=== PATIENT | male | born 1995 | race African-American/Black ===

== ENCOUNTER 2016-11-27 13:09 | Emergency (ER) | payer SELFPAY ==
[2016-11-27 13:40] LABS: INFLUENZA A NEG (NEG); INFLUENZA B POS (NEG)
== END 2016-11-27 13:56 | disposition home or self-care (01) ==
LOC: CED 13:09
PROVIDERS: Physician Assistant Medical
DX: J10.1 Influenza due to other identified influenza virus with other respiratory manifestations (principal)
CPT/HCPCS: 87651; 87804; 99283